=== PATIENT | female | born 1980 | race Caucasian/White ===

== ENCOUNTER → 2018-10-04 | Outpatient (CLI) | payer OTHER | LOC: LAB 10:16 | PROVIDERS: ATTEND Student in an Organized Health Care Education/Training Program | DX: Z11.3 Encounter for screening for infections with a predominantly sexual mode of transmission (principal) | CPT/HCPCS: 87491; 87591 ==

== ENCOUNTER → 2018-10-05 | Outpatient (CLI) | payer OTHER | LOC: LAB 08:13 | PROVIDERS: ATTEND Student in an Organized Health Care Education/Training Program | DX: Z11.3 Encounter for screening for infections with a predominantly sexual mode of transmission (principal) | CPT/HCPCS: 86592; 86703; 86803; 87340 ==

== ENCOUNTER → 2018-10-05 | Outpatient (REF) ==
[2018-10-05 09:17] LABS: LDL CHOLESTEROL 70 mg/dl
== END ==
DX: Z02.9 Encounter for administrative examinations, unspecified (principal)